=== PATIENT | male | born 1995 | race Caucasian/White ===

== ENCOUNTER 2019-07-02 20:15 | Emergency (ER) | payer BC ==
[~2019-07-02] VITALS: Ht 185.4 cm; Wt 72.6 kg
--- NOTE | 2019-07-02 20:20 | NUR ---
PT PRESENTED TO THE ER WITH A C/O RT SMALL TOE PAIN S/P HITTING IT ON A WROUGHT IRON STAIRCASE. PT DEVON TAPED HIS TOE. PT STATED THAT IT HURTS TO WALK.
--- NOTE | 2019-07-02 20:39 | NUR ---
XRAY IN PROGRESS.
--- NOTE | 2019-07-02 22:01 | NUR ---
PT'S TOES WERE DEVON TAPED AND PT REC'D A HARD SOLE SHOE.
--- NOTE | 2019-07-02 22:02 | NUR ---
Patient discharged to home in stable condition. Written and verbal after care instructions given. Patient verbalizes understanding of instruction AND RX. PT IS WAITING FOR IMAGING DISC. PT REC'D A COPY OF THE IMAGING FINDINGS AND A REFERAL TO DR. BEYER
[2019-07-02 22:15] VITALS: BP 136/85
== END 2019-07-02 22:16 | disposition home or self-care (01) ==
LOC: ER 20:19
DX: S92.511A Displaced fracture of proximal phalanx of right lesser toe(s), initial encounter for closed fracture (principal); J45.909 Unspecified asthma, uncomplicated; W01.198A Fall on same level from slipping, tripping and stumbling with subsequent striking against other object, initial encounter; Y93.89 Activity, other specified; Y92.89 Other specified places as the place of occurrence of the external cause; Y99.8 Other external cause status
CPT/HCPCS: 73660-TC